=== PATIENT | female | born 1985 | race Caucasian/White ===

== ENCOUNTER 2017-04-21 15:20 | Emergency (ER) | payer MEDICAID ==
[~2017-04-21 15:20] MED LIST: PREN29TA PO
--- NOTE | 2017-04-21 16:05 | PD ---
HPI Chief Complaint Contractions Date Seen: Apr 21, 2017 Time Seen: 15:50 Travel History International Travel<30 Days: No Contact w/Intl Traveler<30Days: No Known Affected Area: No History of Present Illness HPI 31-year-old 3 para 2 at 40 weeks and 3 days' gestation who comes today with low back pain and wondering if she might be having contractions. She denies any bleeding, leakage of fluid, decreased movement. She states she was 4 cm in the clinic last week. Weeks Gestation: 40 Para: 2 : 3 Miscarriage: 1 History Past Medical History Medical History: Denies Significant Hx Past Surgical History Surgical History: No Previous Surgery Family History Family History: Negative Social History Alcohol Use: No Tobacco Use: No Substance Abuse: No Allergies-Medications (Allergen,Severity, Reaction): Coded Allergies: latex (Unverified Allergy, Unknown, 04/18/17) Home Meds Reported Medications Vit-Iron Carbonyl ( Plus Iron 29-1 mg) Unknown Strength Tab, PO DAILY for Nutritional Supplement, #30 TAB 0 Refills 10/15/16 Review of Systems Except as stated in HPI: all other systems reviewed are Neg Physical Exam Narrative GENERAL: Well-nourished, well-developed patient. SKIN: Warm and dry. HEAD: Normocephalic and atraumatic. EYES: No scleral icterus. No injection or drainage. ENT: No nasal drainage noted. Mucous membranes pink. Airway patent. NECK: Supple, trachea midline. No JVD. CARDIOVASCULAR: Regular rate and rhythm without murmurs, gallops, or rubs. RESPIRATORY: Breath sounds equal bilaterally. No accessory muscle use. BREASTS: Bilateral exam showed no masses , no retractions, no nipple discharge. ABDOMEN/GI: Abdomen soft, non-tender, bowel sounds present, no rebound, no guarding Gravid to [-] weeks size Fundal Height: [-] GENITOURINARY: External Genitalia: intact and normal in appearance BUS glands: [-] Cervix: [2-] Dilatation: [-2] Effacement: [40-] Station: [-2-] Presentation: [Vertex-] Membranes: [intact ] Uterine Contractions: [No-] FHT's: Category: [-] Baseline: [-] Reactive: [-Yes] Variability: [-] Decels: [-] EXTREMITIES: No cyanosis or edema. BACK: Nontender without obvious deformity. No CVA tenderness. NEUROLOGICAL: Awake and alert. Motor and sensory grossly within normal limits. Five out of 5 muscle strength in all muscle groups. Normal speech. Data Data Vital Signs Reviewed: Yes Group B Strep: Negative MDM Medical Record Reviewed: Yes Narrative Course / MDM Assessment: Multipara at 40 weeks and 3 days gestation without evidence of labor Plan: Follow up for routine visit tomorrow. Diagnosis Diagnosis: Primary Impression: 40 weeks gestation of Additional Impression: Irregular contractions Disposition: 01 DISCHARGE HOME Condition: Good Gigi Mancera MD Apr 21, 2017 16:05
== END 2017-04-21 16:57 | disposition home or self-care (01) ==
LOC: HOBED 15:20
DX: O47.1 False labor at or after 37 completed weeks of gestation (principal); Z3A.40 40 weeks gestation of pregnancy
CPT/HCPCS: 59025

== ENCOUNTER 2017-04-25 06:38 | Inpatient (IN) | payer MEDICAID ==
[2017-04-25] VITALS (61 sets, daily range): BP systolic 92–141; BP diastolic 50–87; PULSE 59–114; RESP 15–22; TEMP 95.9–97.8; O2SAT 90–100
[2017-04-25] MEDS ORDERED: LACTATED RINGER'S 1000 ML INJ 1,000 ML IV SCH ×2 (07:01→19:19)
[2017-04-25] MEDS ORDERED: LACTATED RINGER'S 1000 ML INJ 1,000 ML IV PRN (07:01)
--- NOTE | 2017-04-25 07:11 | HHI.HP ---
HPI Chief Complaint Induction of labor Date Seen: Apr 25, 2017 Travel History International Travel<30 Days: No Contact w/Intl Traveler<30Days: No History of Present Illness HPI Patient is a 31 year old at 41-0/7 weeks gestation who presents today for induction of labor. She denies any contractions, vaginal bleeding or discharge. No gush or leaking of fluid. Positive movement. care with [facility]. History Past Medical History Narrative Medical History of depression Obstetric History Obstetric History in 2006 at 40 weeks gestation, 7 pounds 6 male in 2007 at 40 weeks gestation, 7 lbs. 4 oz. male Spontaneous Past Surgical History Surgical History: No Previous Surgery Family History Family History: Negative Social History Alcohol Use: No Tobacco Use: No Substance Abuse: No Allergies-Medications (Allergen,Severity, Reaction): Coded Allergies: latex (Unverified Allergy, Unknown, 04/24/17) Home Meds Reported Medications Vit-Iron Carbonyl ( Plus Iron 29-1 mg) Unknown Strength Tab, PO DAILY for Nutritional Supplement, #30 TAB 0 Refills 10/15/16 Review of Systems Except as stated in HPI: all other systems reviewed are Neg General / Constitutional: No: Fever, Chills Eyes: No: Blurred Vision, Visual changes HENT: No: Headaches Cardiovascular: No: Chest Pain or Discomfort, Palpitations Respiratory: No: Cough, Short of Breath Gastrointestinal: No: Abdominal Pain Genitourinary: No: Dysuria, Hematuria, Pelvic Pain, Discharge, Vaginal Bleeding Musculoskeletal: No: Edema Neurologic: No: Headache Psychiatric: No: Substance Abuse Physical Exam Narrative GENERAL: Well-nourished, well-developed patient. SKIN: Warm and dry. HEAD: Normocephalic and atraumatic. EYES: No scleral icterus. No injection or drainage. ENT: No nasal drainage noted. Mucous membranes pink. Airway patent. NECK: Supple, trachea midline. No JVD. CARDIOVASCULAR: Regular rate and rhythm without murmurs, gallops, or rubs. RESPIRATORY: Breath sounds equal bilaterally. No accessory muscle use. ABDOMEN/GI: Abdomen soft, non-tender, bowel sounds present, no rebound, no guarding Gravid to 41 weeks size GENITOURINARY: External Genitalia: intact and normal in appearance BUS glands: normal Cervix: midposition Dilatation: 6 Effacement: 50 Station: -2 Presentation: vertex Membranes: AROM, clear fluid Uterine Contractions: q2-3min FHT's: Category: I Baseline: 130 Reactive: + Variability: moderate Decels: none EXTREMITIES: No cyanosis or edema. BACK: Nontender without obvious deformity. No CVA tenderness. NEUROLOGICAL: Awake and alert. Motor and sensory grossly within normal limits. Normal speech. Caprini VTE Risk Assessment Caprini VTE Risk Assessment: No/Low Risk (score <= 1) Caprini Risk Assessment Model Point Value = 1 Point Value = 2 Point Value = 3 Point Value = 5 Age 41-60 Minor surgery BMI > 25 kg/m2 Swollen legs Varicose veins or History of unexplained or recurrent spontaneous Oral contraceptives or hormone replacement Sepsis (< 1 month) Serious lung disease, including pneumonia (< 1 month) Abnormal pulmonary function Acute myocardial infarction Congestive heart failure (< 1 month) History of inflammatory bowel disease Medical patient at bed rest Age 61-74 Arthroscopic surgery Major open surgery (> 45 min) Laparoscopic surgery (> 45 min) Malignancy Confined to bed (> 72 hours) Immobilizing plaster cast Central venous access Age >= 75 History of VTE Family history of VTE Factor V Leiden Prothrombin [id number] Lupus anticoagulant Anticardiolipin antibodies Elevated serum homocysteine Heparin-induced thrombocytopenia Other congenital or acquired thrombophilia Stroke (< 1 month) Elective arthroplasty Hip, pelvis, or leg fracture Acute spinal cord injury (< 1 month) Prophylaxis Regimen Total Risk Factor Score Risk Level Prophylaxis Regimen 0-1 Low Early ambulation 2 Moderate Order ONE of the following: *Sequential Compression Device (SCD) *Heparin 5000 units SQ BID 3-4 Higher Order ONE of the following medications: *Heparin 5000 units SQ TID *Enoxaparin/Lovenox 40 mg SQ daily (WT < 150 kg, CrCl > 30 mL/min) *Enoxaparin/Lovenox 30 mg SQ daily (WT < 150 kg, CrCl > 10-29 mL/min) *Enoxaparin/Lovenox 30 mg SQ BID (WT < 150 kg, CrCl > 30 mL/min) AND/OR *Sequential Compression Device (SCD) 5 or more Highest Order ONE of the following medications: *Heparin 5000 units SQ TID (Preferred with Epidurals) *Enoxaparin/Lovenox 40 mg SQ daily (WT < 150 kg, CrCl > 30 mL/min) *Enoxaparin/Lovenox 30 mg SQ daily (WT < 150 kg, CrCl > 10-29 mL/min) *Enoxaparin/Lovenox 30 mg SQ BID (WT < 150 kg, CrCl > 30 mL/min) AND *Sequential Compression Device (SCD) Data Data Vital Signs Reviewed: Yes Orders Orders Admit To Inpatient (04/25/17 ) Code Status (04/25/17 07:01) Vital Signs (Adult) .Per protocol (04/25/17 07:01) Activity Oob Ad Michelle (04/25/17 07:01) Heart (04/25/17 07:01) Amnioinfusion (04/25/17 07:01) Urinary Catheter Management .ONCE (04/25/17 07:01) Diet Liquid (04/25/17 Breakfast) Lactated Ringer's 1000 Ml Inj (Lr 1000 M (04/25/17 07:01) Lactated Ringer's 1000 Ml Inj (Lr 1000 M (04/25/17 07:01) Sodium Chlorid 0.9% 500 Ml Inj (Ns 500 M (04/25/17 07:15) Sodium Chlor 0.9% 1000 Ml Inj (Ns 1000 M (04/25/17 07:21) Lidocaine 1% Inj (50 Ml) (Xylocaine 1% I (04/25/17 07:15) Citric Acid-Sodium Citrate Liq (Bicitra (04/25/17 07:15) Ondansetron Inj (Zofran Inj) (04/25/17 07:15) Fentanyl Inj (Fentanyl Inj) (04/25/17 07:15) Fentanyl Inj (Fentanyl Inj) (04/25/17 07:15) Complete Blood Count With Diff (04/25/17 07:01) Hold Clot (04/25/17 07:01) Abo/Rh Blood Type (04/25/17 07:01) Urinalysis - C+S If Indicated (04/25/17 07:01) Resp Oxygen Non Rebreathe Mask (04/25/17 ) ^ Epidural / Intrathecal Infus (04/25/17 07:01) Oxytocin 30 Units-500ml Premix (Pitocin (04/25/17 07:15) Lidocaine 1% Inj (50 Ml) (Xylocaine 1% I (04/25/17 07:15) Light Mineral Oil (Muri-Lube Oil) (04/25/17 07:15) Inpatient Certification (04/25/17 ) Specimen To Be Collected PRN (04/25/17 07:01) Group B Strep: Negative Assessment/Plan Assessment and Plan 31 year old at 41-0/7 weeks gestation. 1. IUP- Category I tracing, reassuring. 2. IOL for term- AROM, clear fluid. Start Pitocin if needed. 3. GBS negative dw Dr. Adrian Ambriz,Roro Cedeno MD, R3 Apr 25, 2017 07:10
[2017-04-25] MEDS ORDERED: SODIUM CHLORID 0.9% 500 ML INJ 500 ML IV PRN (07:15)
[2017-04-25] MEDS ORDERED: LIDOCAINE HCL 1% 50 ML VIAL INFIL PRN (07:15)
[2017-04-25] MEDS ORDERED: ONDANSETRON HCL 4 MG/2 ML VIAL IV PRN (07:15)
[2017-04-25] MEDS ORDERED: MINERAL OIL 10 ML VIAL TOPICAL PRN (07:15)
[2017-04-25] MEDS ORDERED: CITRIC ACID-SODIUM CITRATE LIQ 30 ML UDC PO SCH (07:15)
[2017-04-25] MEDS ORDERED: LIDOCAINE HCL 1% 50 ML VIAL I-DERMAL PRN (07:15)
[2017-04-25] MEDS ORDERED: OXYTOCIN 30 UNITS-500ML PREMIX 500 ML IV ONE ×2 (07:15→14:30)
[2017-04-25] MEDS ORDERED: SODIUM CHLOR 0.9% 1000 ML INJ 1,000 ML IV PRN (07:21)
[2017-04-25] MEDS ORDERED: OXYTOCIN 30 UNITS-500ML PREMIX 500 ML IV SCH (08:00)
[2017-04-25 08:02] LABS: AUTOMATED NEUTROPHIL # 9.2 TH/MM3 (1.8-7.7); BASOPHIL # 0.1 TH/MM3 (0-0.2); BASOPHIL % 0.9 % (0.0-2.0); EOSINOPHIL # 0.1 TH/MM3 (0-0.4); EOSINOPHIL % 1.1 % (0.0-4.0); HEMATOCRIT 39.5 % (35.0-46.0); HEMO FLAGS DIFF FINAL; LYMPH % 24.5 % (9.0-44.0); LYMPHOCYTE # 3.3 TH/MM3 (1.0-4.8); MEAN CORPUSCULAR HGB CONC 30.9 % (32.0-36.0); MONO % 5.4 % (0.0-8.0); NEUT % 68.1 % (16.0-70.0); PLATELET COUNT 212 TH/MM3 (150-450); RED BLOOD COUNT 4.88 MIL/MM3 (4.00-5.30); RED CELL DISTRIBUTION WIDTH 16.5 % (11.6-17.2); WHITE BLOOD COUNT 13.5 TH/MM3 (4.0-11.0)
[2017-04-25 08:04] LABS: BACTERIA, URINE RARE /hpf; BLOOD, URINE NEG (NEG); COMMENT (UR) CULT NOT INDICATED; CULTURE IF INDICATED CULT NOT INDICATED; GLUCOSE,URINE NEG (NEG); KETONE, URINE NEG (NEG); MUCUS URINE FEW /lpf (OCC); NITRITE,URINE NEG (NEG); SQUAMOUS EPITHELIAL CELL URINE 2 /hpf (0-5); URINE COLOR YELLOW (YELLW/STRAW)
[2017-04-25] MEDS ORDERED: fentaNYL 2MCG-BUPIV 0.125% INJ 100 ML ONE (10:23)
--- NOTE | 2017-04-25 10:50 | PD.LABORPN ---
Subjective Subjective Patient resting comfortably in bed. Objective Vital Signs Vital Signs Date Time Temp Pulse Resp B/P (MAP) Pulse Ox O2 Delivery O2 Flow Rate FiO2 04/25/17 09:30 64 118/74 (89) 04/25/17 09:22 66 121/74 (90) 04/25/17 07:00 72 141/87 (105) 04/25/17 07:00 15 Objective Pelvic Exam: Cervix: Posterior Dilatation: 7-8 Effacement: 60 Station: -2 Presentation: vertex Membranes: AROM Uterine Contractions: 2-5 minutes FHT's: Category: 1 Baseline: 140 Reactive: + Variability: moderate Decels: none Weeks Gestation: 41 Gest Age Assessed Date: Apr 25, 2017 Gest Age Assessed Time: 07:11 Pt started active labor?: Yes Active labor start date: Apr 25, 2017 Active labor start time: 10:20 Medical induction of labor?: Yes Medical induction start date: Apr 25, 2017 Medical induction start time: 10:20 Artificial rupture of membrane: Yes Artificial ROM date: Apr 25, 2017 Artifical ROM time: 07:55 Assessment/Plan Assessment and Plan 31 year old at 41-0/7 weeks gestation. 1. IUP- Category I tracing, reassuring. 2. AROM, clear fluid. Pitocin started 3. GBS negative 4. Opted for Epidural placement d/w Dr. Rodriguez, Ronnie Storm MD R1 Apr 25, 2017 10:50
[2017-04-25] MEDS ORDERED: ePHEDrine/NS 25 MG/5 ML SYR ONE (11:29)
[2017-04-25] MEDS ORDERED: fentaNYL 2MCG-BUPIV 0.125% 100 ML EPIDURAL SCH (12:30)
[2017-04-25] MEDS ORDERED: NO SYSTEM NARCOTICS PRN (12:30)
[2017-04-25] MEDS ORDERED: ePHEDrine/NS 25 MG/5 ML SYR IV PRN (12:30)
[2017-04-25] MEDS ORDERED: DO NOT ADMINISTER ANTICOAGULANTS PRN (12:30)
[2017-04-25] MEDS ORDERED: TERBUTALINE INJ 1 MG/ML AMP ONE (12:52)
[2017-04-25] MEDS ORDERED: OXYTOCIN 10 UNIT/ML AMP ONE (13:10)
[2017-04-25] MEDS ORDERED: ONDANSETRON HCL 4 MG/2 ML VIAL ONE (13:30)
[2017-04-25] MEDS ORDERED: EPIDURAL-DIPHENHYDRAMINE HCL 50 MG/ML VIAL IV PUSH PRN (13:30)
[2017-04-25] MEDS ORDERED: MORPHINE SULFATE PF 5 MG/10 ML VIAL ONE (13:30)
[2017-04-25] MEDS ORDERED: EPIDURAL-DIPHENHYDRAMINE HCL 50 MG CAP PO PRN (13:30)
[2017-04-25] MEDS ORDERED: ACETAMINOPHEN 1000 MG/100 ML VIAL IV ONE ×2 (13:30→14:30)
[2017-04-25] MEDS ORDERED: EPIDURAL-DO NOT ADMINISTER ANTICOAGULANTS PRN (13:30)
[2017-04-25] MEDS ORDERED: EPIDURAL-NALOXONE HCL 0.4 MG/ML AMP IV PRN (13:30)
[2017-04-25] MEDS ORDERED: EPIDURAL-NO SYSTEMIC NARCOTICS PRN (13:30)
[2017-04-25] MEDS ORDERED: ACETAMINOPHEN 1000 MG/100 ML 100 ML IV ONE (13:30)
[2017-04-25 13:38] LABS: BLOOD GAS BASE EXCESS -2.7 mmol/L (-2-2); BLOOD GAS O2 HGB SATURATION 9 % (90-100); CORD BLOOD GAS HCO3 25 mmol/L (21-29); CORD BLOOD GAS PCO2 68 mmHG (34-78); CORD BLOOD GAS PH 7.18 (7.14-7.42); CORD BLOOD GAS PO2 9 mmHG (3.0-40.0); DRAW SITE CORD BLOOD; STAT NO
[2017-04-25] MEDS ORDERED: ceFAZolin INJ 1,000 MG VIAL ONE (14:07)
--- NOTE | 2017-04-25 14:27 | PD.OB.DELI ---
Procedure Note Section Procedure Performed by Elizabeth Rodriguez Procedure: Primary Low Transverse Sec Indication for delivery: Nonreassuring heart tracing Previous condition: None Informed consent obtained: For anesthesia, For procedure Confirmed correct: Patient, Procedure, Site, Time-out taken Anesthesia: Epidural Medication prior to procedure: As documented in eMAR, Antibiotics, IV Monitoring during procedure: Blood pressure monitoring, doppler, Pulse oximetry Urinary catheter: Inserted using sterile technique, To dependent drainage, ml urine output (350cc clear urine) Sterile preparation: Duraprep Position: Supine with wedge to left side Operative Features Skin Incision: Pfannenstiel Uterine Incision: Low transverse w/knife / blunt ext Membranes Ruptured: Artificially Presentation: Vertex Delivery date: Apr 25, 2017 Delivery time: 13:19 Delivery of infant: Uneventful Infant: Female One Minute : 9 Five Minute : 9 Weight: 7#1oz. Status of : Viable, Cord blood, Nursery present Placenta delivered: Intact Medications: Antibiotics, Oxytocin Estimated blood loss: 500cc Procedure tolerated: Well Maternal Condition: Stable Condition: Stable Procedure in detail Preoperative diagnosis: 1. Intrauterine at 41 weeks 2. Nonreassuring heart tones 3. LGSIL Pap 4. Anxiety 5. Back arthritis Postoperative diagnosis 1. Intrauterine at 41 weeks 2. Nonreassuring heart tones 3. LGSIL Pap 4. Anxiety 5. Back arthritis 6. Occult cord prolapse Attending surgeon: Dr. Elizabeth Rodriguez Assistants: Catrina Perez, Samia Valente 1 Procedures performed: Primary low transverse section with 2 layer closure and no extensions by Pfannenstiel skin incision Indications: The patient is a 31-year-old 4 para 2021 with intrauterine at 41 weeks who was undergoing a postterm induction; she was noted to have nonreassuring heart tones that were not responsive to intervention methods with the exception with gentle elevation of head off the cervix. All standard resuscitative measures were performed including discontinuation of oxytocin, placement of oxygen, intravenous fluid bolus, repositioning to all positions including knee-chest, and terbutaline, so the decision was made to proceed with emergent/stat delivery. Findings: Viable female infant in the cephalic presentation with an occult cord prolapse noted. Apgars were 9/9. The weighed 7 lbs. 1 oz. The patient had normal maternal anatomy with normal fallopian tubes, normal ovaries , and normal uterus. After obtaining informed consent, with risks, benefits, and alternatives discussed at length with patient including, but not limited to, pain, infection , bleeding, bleeding that may require blood transfusion or hysterectomy to save her life, injury to other organs like bladder, bowel, nerves, vessels, and baby ; as well as risk of wound infection and breakdown, the need for repeat operation, and other risks, the patient was taken to the operating room with her epidural redosed on the way to the operating room, with Dukes catheter in place and IV fluids running. heart tones remained stable with return to baseline by nurse gently elevating the head off of the cervix The patient was prepped and draped in the normal sterile fashion and a timeout procedure performed. A Pfannenstiel skin incision was made with the scalpel and carried down to the fascia. The fascia was nicked in the midline with the scalpel and the fascial incision extended laterally. The superior aspect of the fascia was dissected off the underlying rectus muscles bluntly both superiorly and inferiorly. Rectus muscles were in the midline and the peritoneum entered bluntly. The peritoneal incision was extended bluntly. The Isaias self-containing wound retractor was quickly placed and the lower uterine segment was incised with the scalpel. The hysterotomy was created bluntly and extended bluntly. The vertex was elevated to the level of the hysterotomy and the cord was noted to be between the head and the cervix. The head delivered atraumatically followed by atraumatic delivery of the remainder of the infant. The was vigorous on the field so the decision was made to wait for delayed cord clamping for 45 seconds. The cord was doubly clamped and cut and the vigorous passed off to the waiting pediatric team. A cord segment was obtained for cord pH and cord blood obtained for the nursery. The placenta was removed manually and the uterus exteriorized and cleared of all clots and debris. The uterus was replaced in the abdomen and the hysterotomy repaired with a #1 chromic in a running locked fashion. A second layer of the same suture was used in an imbricating fashion after which excellent hemostasis was noted. The gutters were cleared of all clots and debris and hysterotomy was reinspected and noted be hemostatic. The peritoneal edges were reapproximated with 2-0 Vicryl in a running fashion. The rectus muscles were examined and noted be hemostatic. The fascia was reapproximated with #1 Vicryl in a running fashion. The fascial incision was noted to be intact and free of defect. The subcutaneous tissue was irrigated with warm normal saline and noted be hemostatic. The subcutaneous cutaneous tissue was closed with 2-0 Vicryl in an interrupted fashion. The skin edges were reapproximated in subcuticular fashion with 3-0 Monocryl. Excellent hemostasis and cosmesis were noted. The incision was covered with Dermabond. All sponge lap and needle counts were correct 2. I performed the entire procedure myself. The patient was taken to the PACU at the completion of the procedure in stable condition. Estimated blood loss: 500 cc Urine output: 350 cc clear urine was noted at the end of the procedure IV fluids:1 L lactated Ringer's Elizabeth Rodriguez MD Apr 25, 2017 14:26
[2017-04-25] MEDS ORDERED: ONDANSETRON HCL 4 MG/2 ML VIAL IV PUSH PRN (14:30)
[2017-04-25] MEDS ORDERED: oxyCODONE/ACETAMINOPHEN 5 MG/325 MG TAB PO PRN (14:30)
[2017-04-25] MEDS ORDERED: SODIUM CHLORIDE 0.9% FLUSH 10 ML FLUSH IV FLUSH PRN (14:30)
[2017-04-25] MEDS ORDERED: SIMETHICONE 80 MG CHEWABLE TAB PO PRN (14:30)
[2017-04-25] MEDS ORDERED: DOCUSATE SODIUM 50 MG/SENNA 8.6 MG TAB PO PRN (14:30)
[2017-04-25] MEDS ORDERED: ACETAMINOPHEN 325 MG TAB PO PRN (14:30)
[2017-04-25] MEDS ORDERED: KETOROLAC TROMETHAMINE 60 MG/2 ML (IM) VIAL IM PRN (14:30)
[2017-04-25] MEDS ORDERED: OXYTOCIN 30 UNITS-500ML PREMIX 500 ML ONE (14:34)
[2017-04-25] MEDS: diphenhydrAMINE HCL 25 MG CAP PO PRN (17:33)
[2017-04-25] MEDS ORDERED: SODIUM CHLORIDE 0.9% FLUSH 10 ML FLUSH IV FLUSH SCH (21:00)
[2017-04-25] MEDS: ACETAMINOPHEN 1000 MG/100 ML VIAL IV SCH (22:16)
[2017-04-26] MEDS ORDERED: OXYTOCIN 30 UNITS-500ML PREMIX 500 ML IV PRN (00:30)
[2017-04-26] MEDS: ACETAMINOPHEN 1000 MG/100 ML VIAL IV SCH (05:52)
[2017-04-26 05:53] LABS: AUTOMATED NEUTROPHIL # 9.6 TH/MM3 (1.8-7.7); BASOPHIL % 0.3 % (0.0-2.0); EOSINOPHIL % 0.4 % (0.0-4.0); HEMATOCRIT 25.7 % (35.0-46.0); HEMO FLAGS DIFF FINAL; LYMPH % 16.5 % (9.0-44.0); LYMPHOCYTE # 2.1 TH/MM3 (1.0-4.8); MEAN CELL VOLUME 80.8 FL (80.0-100.0); MEAN CORPUSCULAR HEMOGLOBIN 25.8 PG (27.0-34.0); MEAN CORPUSCULAR HGB CONC 31.9 % (32.0-36.0); MONO % 7.8 % (0.0-8.0); PLATELET COUNT 150 TH/MM3 (150-450); RED BLOOD COUNT 3.18 MIL/MM3 (4.00-5.30); RED CELL DISTRIBUTION WIDTH 16.1 % (11.6-17.2); WHITE BLOOD COUNT 12.8 TH/MM3 (4.0-11.0)
[2017-04-26 08:00] VITALS: BP 92/60; PULSE 70; RESP 16; TEMP 98.2
[2017-04-26] MEDS: IBUPROFEN 600 MG TAB PO PRN ×3 (08:10→20:55)
[2017-04-26] MEDS: oxyCODONE/ACETAMINOPHEN 5 MG/325 MG TAB PO PRN ×3 (08:10→20:55)
--- NOTE | 2017-04-26 09:08 | HHI.OB ---
Subjective Post Day: 1 Remarks Postoperative day # 1 AFVSS overnight. Incision not draining. Decreased lochia. Denies dysuria. No breast tenderness. She is feeding the baby via breast. Appetite good. No nausea or vomiting. Positive flatus. Ambulating well. Denies calf pain or shortness of breath. Otherwise, she is doing well this morning and has no other complaints. Objective Vitals/I&O Vital Signs Date Time Temp Pulse Resp B/P (MAP) Pulse Ox O2 Delivery O2 Flow Rate FiO2 04/26/17 08:00 98.2 70 16 92/60 (71) 04/26/17 06:24 20 04/26/17 04:00 18 04/25/17 16:30 97.8 20 04/25/17 16:30 69 112/64 (80) 04/25/17 16:02 79 22 100 04/25/17 16:02 97.8 105/55 (72) 04/25/17 15:40 120/73 (89) 04/25/17 15:38 99 04/25/17 15:38 97.5 68 20 04/25/17 15:25 74 18 102/55 (71) 98 04/25/17 15:23 97.0 04/25/17 15:10 22 99 04/25/17 15:10 77 96/52 (67) 04/25/17 15:10 96.1 04/25/17 14:53 95.9 04/25/17 14:52 99 04/25/17 14:51 132/65 (87) 04/25/17 14:51 86 22 04/25/17 14:37 102/54 (70) 04/25/17 14:37 73 22 100 04/25/17 14:25 90 04/25/17 14:24 93 113/67 (82) 04/25/17 14:10 75 18 95/51 (66) 04/25/17 14:10 97 04/25/17 13:55 59 22 106/60 (75) 04/25/17 13:55 100 04/25/17 13:00 76 118/60 (79) 04/25/17 13:00 75 04/25/17 12:55 68 04/25/17 12:50 88 04/25/17 12:46 80 112/69 (83) 04/25/17 12:45 64 04/25/17 12:40 66 04/25/17 12:30 60 116/69 (85) 04/25/17 12:24 70 109/69 (82) 04/25/17 12:21 68 109/66 (80) 04/25/17 12:18 59 117/67 (84) 04/25/17 12:15 65 123/73 (90) 04/25/17 12:12 75 114/73 (87) 04/25/17 12:09 81 116/65 (82) 04/25/17 12:07 18 04/25/17 12:06 67 117/68 (84) 04/25/17 12:03 62 122/77 (92) 04/25/17 12:00 65 117/70 (86) 04/25/17 11:57 69 116/77 (90) 04/25/17 11:54 78 116/72 (87) 04/25/17 11:51 66 119/69 (86) 04/25/17 11:49 63 115/69 (84) 04/25/17 11:48 69 109/68 (82) 04/25/17 11:45 66 98/58 (71) 04/25/17 11:42 74 92/50 (64) 04/25/17 11:40 75 04/25/17 11:39 92 114/68 (83) 04/25/17 11:36 70 112/65 (81) 04/25/17 11:35 75 04/25/17 11:33 64 120/65 (83) 04/25/17 11:30 97 119/70 (86) 04/25/17 11:30 76 04/25/17 11:29 90 111/65 (80) 04/25/17 11:27 114 128/71 (90) 04/25/17 11:25 73 04/25/17 11:24 72 114/70 (85) 04/25/17 11:23 69 117/75 (89) 04/25/17 11:22 64 123/75 (91) 04/25/17 11:20 64 04/25/17 11:15 72 110/73 (85) 04/25/17 11:00 71 111/76 (88) 04/25/17 10:45 97.7 65 18 124/74 (91) 04/25/17 10:30 82 122/73 (89) 04/25/17 10:00 76 131/77 (95) 04/25/17 09:45 65 122/68 (86) 04/25/17 09:30 64 118/74 (89) 04/25/17 09:22 66 121/74 (90) Objective Remarks GENERAL: Well-nourished, well-developed patient. CARDIOVASCULAR: Regular rate and rhythm without murmurs, gallops, or rubs. RESPIRATORY: Breath sounds equal bilaterally. No accessory muscle use. ABDOMEN/GI: Abdomen soft, non-tender. Fundus: Firm, non-tender at umbilicus. GENITOURINARY: Light to moderate bleeding. EXTREMITIES: No cyanosis or edema, non-tender, without signs of DVT. Medications and IVs Current Medications Medications (Trade) Dose Ordered Sig/Linda Route Start Time Stop Time Status Last Admin Miscellaneous Information No systemic narcotics to be given except... UNSCH PRN .XX 04/25/17 12:30 04/26/17 12:29 Miscellaneous Information DO NOT ADMINISTER ANY ANTICOAGUL... UNSCH PRN .XX 04/25/17 12:30 04/26/17 12:29 Fentanyl/ Bupivacaine HCl 100 ml @ 12 mls/hr TITRATE EPIDURAL 04/25/17 12:30 (ePHEDrine/NS 25 MG/5 ML SYR) 10 mg UNSCH PRN IV 04/25/17 12:30 04/26/17 12:29 Lactated Ringer's 1,000 ml @ 100 mls/hr Q10H IV 04/25/17 19:19 04/26/17 15:18 04/25/17 23:50 Oxytocin 500 ml @ 100 mls/hr UNSCH X1 PRN IV 04/26/17 00:30 04/27/17 00:29 (NS Flush) 2 ml BID IV FLUSH 04/25/17 21:00 (NS Flush) 2 ml UNSCH PRN IV FLUSH 04/25/17 14:30 (Mylicon Chew) 80 mg QID PRN PO 04/25/17 14:30 (Tylenol) 650 mg Q6H PRN PO 04/25/17 14:30 (Motrin) 600 mg Q6H PRN PO 04/25/17 14:30 04/26/17 08:10 (Toradol Inj) 60 mg UNSCH X1 PRN IM 04/25/17 14:30 04/26/17 14:29 (Percocet 5-325 Mg) 1 tab Q4H PRN PO 04/25/17 14:30 04/26/17 03:00 (Percocet 5-325 Mg) 2 tab Q4H PRN PO 04/25/17 14:30 04/26/17 08:10 (Daisy-Colace) 2 tab Q12H PRN PO 04/25/17 14:30 04/26/17 08:10 (M-M-R Ii Inj) 0.5 ml ONCE ONCE SQ 04/26/17 16:00 04/26/17 16:01 (Boostrix Inj) 0.5 ml ONCE ONCE IM 04/26/17 16:00 04/26/17 16:01 UNV (Zofran Inj) 4 mg Q6H PRN IV PUSH 04/25/17 14:30 (Benadryl) 25 mg Q4H PRN PO 04/25/17 17:45 04/25/17 17:33 Miscellaneous Information NO SYSTEMIC NARCOTICS TO BE GIVEN FO... UNSCH PRN .XX 04/25/17 13:30 04/26/17 13:29 (Narcan Inj) 0.4 mg UNSCH PRN IV 04/25/17 13:30 04/26/17 13:29 (Benadryl Inj) 25 mg Q6H PRN IV PUSH 04/25/17 13:30 04/26/17 13:29 (Benadryl) 50 mg Q6H PRN PO 04/25/17 13:30 04/26/17 13:29 04/25/17 23:57 Miscellaneous Information ALL NURSING DEPARTMENTS UNSCH PRN .XX 04/25/17 13:30 04/26/17 13:29 Assessment/Plan Assessment and Plan 31 y/o female who is POD# 1 s/p CXN. -Continue routine care. -Percocet and Motrin PRN pain. -Encouraged OOB. Advised pelvic rest for 6 wks. Will need a f/u appt. in 1 wk for incision check. -Re: ctrl, she would like a Nexplanon placement, will follow up with outpatient OB. -D/c today or tomorrow dw dr. Rodriguez, Dr. Pb Freitas,Ronnie Rhodes MD R1 Apr 26, 2017 09:08
[2017-04-26] MEDS: diphenhydrAMINE HCL 25 MG CAP PO PRN ×2 (14:50→23:21)
[2017-04-26] MEDS ORDERED: MEASLES, MUMPS, RUBELLA VACCINE 0.5 ML VIAL SQ ONE (16:00)
[2017-04-26] MEDS ORDERED: DIPHTH/TETANUS/ACEL PERTUSSIS (BOOSTER) 0.5 ML VIAL/PFS IM ONE (16:00)
[2017-04-26 20:00] VITALS: BP 114/73; PULSE 68; RESP 18; TEMP 98
[2017-04-27] MEDS: IBUPROFEN 600 MG TAB PO PRN (04:15)
[2017-04-27] MEDS: oxyCODONE/ACETAMINOPHEN 5 MG/325 MG TAB PO PRN ×2 (04:15→12:18)
[2017-04-27 08:00] VITALS: BP 119/69; PULSE 65; RESP 14; TEMP 98.1
[2017-04-27] MEDS ORDERED: IBUP-232 PO (12:44)
[2017-04-27] MEDS ORDERED: SENN1TAB PO (12:44)
[2017-04-27] MEDS ORDERED: OXYC1TAB63 PO (12:44)
--- NOTE | 2017-04-27 12:45 | HHI.DCPOC ---
Discharge Care Plan Diagnosis: (1) S/P Report Symptoms to Your Doctor -Temperature above 100.5 degrees -Redness, of incision or excessive or foul smelling drainage -Unusual pain or calf pain -Increased vaginal bleeding -Painful or difficulty urinating -Feelings of extreme sadness or anxiety after 2 weeks Goals to Promote Your Health * To prevent worsening of your condition and complications, please follow-up with your doctor. * To maintain your health at the optimal level, please follow your doctor's instructions. Directions to Meet Your Goals Take your medications as prescribed Follow your dietary instruction Follow activity as directed Ensure plenty of rest for recovery Drink fluids for hydration Keep your appointments as scheduled Take your immunizations and boosters as scheduled If your symptoms worsen call your PCP, if no PCP go to Urgent Care Center or Emergency Room Smoking is Dangerous to Your Health. Avoid second hand smoke Call the 24-hour crisis hotline for domestic abuse at Ronnie Akbar MD R2 Apr 27, 2017 12:45
--- NOTE | 2017-04-27 15:24 | HHI.OB ---
Subjective Post Operative Day: 2 Remarks Patient is a 31-year-old delivered at 41 weeks and 0 days. Patient is postop day 2 after . Patient's pain is well-controlled. Patient reports eating and drinking without any nausea or vomiting. Patient reports minimal bleeding. Patient has passed gas but no bowel movements. Patient is walking without lower extremity pain or shortness of breath. Patient reports desire for contraception with arm implant and breast-feeding. (Ronnie Akbar MD R2) Remarks Patient seen and evaluated with resident under direct supervision, agree with assessment and plan. (Gigi Mancera MD) Objective Vitals/I&O Vital Signs Date Time Temp Pulse Resp B/P (MAP) Pulse Ox O2 Delivery O2 Flow Rate FiO2 04/27/17 08:00 98.1 65 14 119/69 (86) 04/26/17 20:00 98.0 68 18 114/73 (87) (Ronnie Akbar MD R2) Result Diagram: 04/26/17 0459 Objective Remarks GENERAL: Well-nourished, well-developed patient. CARDIOVASCULAR: Regular rate and rhythm without murmurs, gallops, or rubs. RESPIRATORY: Breath sounds equal bilaterally. No accessory muscle use. ABDOMEN/GI: Abdomen soft, non-tender, bowel sounds present. Incision: Clean, dry and intact. Fundus: Firm, non-tender at umbilicus. GENITOURINARY: Light to moderate bleeding. EXTREMITIES: No cyanosis or edema, non-tender, without signs of DVT. (Ronnie Akbar MD R2) Assessment/Plan Problem List: (1) S/P ICD Codes: Z98.891 - History of uterine scar from previous surgery Assessment and Plan Patient is a 31-year-old delivered at 41 weeks and 0 days. Patient is postop day 2 after . Patient was counseled to do 6 weeks of pelvic rest. Patient was counseled to follow up for an incision check in one week and again in 6 weeks. Patient requested follow-up and contraception with arm implant. -AF VSS -Continue routine care. -Percocet and Motrin PRN pain. -Encouraged OOB. Advised pelvic rest for 6 wks. Will need a f/u appt. in 1 wk for incision check. -Re: ctrl, she would like a Nexplanon placement, will follow up with outpatient OB. -D/c today dw Dr. Mancera (Ronnie Akbar MD R2) Ronnie Akbar MD R2 Apr 27, 2017 15:24 Gigi Mancera MD May 03, 2017 17:46
== END 2017-04-27 15:04 | disposition home or self-care (01) | DRG 766 ==
LOC: H2EB 06:38 → H1EA 16:21
PROVIDERS: ADMIT Obstetrics & Gynecology Maternal & Fetal Medicine; ATTEND Obstetrics & Gynecology Maternal & Fetal Medicine
PROC: 10D00Z1 Extraction of Products of Conception, Low, Open Approach (ICD-10-PCS; principal; 2017-04-25)
PROC: 3E0R3CZ (ICD-10-PCS; 2017-04-25)
PROC: 00HU33Z Insertion of Infusion Device into Spinal Canal, Percutaneous Approach (ICD-10-PCS; 2017-04-25)
DX: O76 Abnormality in fetal heart rate and rhythm complicating labor and delivery (principal); O48.0 Post-term pregnancy; Z37.0 Single live birth; Z3A.41 41 weeks gestation of pregnancy; R87.612 Low grade squamous intraepithelial lesion on cytologic smear of cervix (LGSIL); M46.90 Unspecified inflammatory spondylopathy, site unspecified; M47.9 Spondylosis, unspecified
CPT/HCPCS: 59025; 76937; 81001; 82805; 85025; 86900; 86901; J0131; J0690; J2274; J2405; J2590; J3010; J3105; J7120; Q0163